=== PATIENT | male | born 1955 | race Caucasian/White ===

== ENCOUNTER → 2017-09-28 | Outpatient (CLI) | payer BC ==
--- NOTE | 2017-10-02 14:00 | PCVCIMAG ---
APPROVED REPORT Patient Location: Echo lab-STR[facility] Room #: 2 Stress Nurse: Kathy Silver RN INDICATION: Abnormal EKG, htn,dislipidemia The patient exercised according to the Jeromy Protocol for 10:15 minutes, achieving a maximum work level of 13.7 METS. The resting heart rate of 86 bpm, beau to a maximal level of 179 bpm. This value represents 100% of the maximal, age-predicted heart rate. The resting blood pressure of 140/90 mmHg, beau to a maximum blood pressure of 198/84 mmHg. The exercise was stopped due to fatigue. The stress ECG demonstrated rare PVC', no diagnostic ischemic electrocardiographic changes Conclusion 1. Maximal stress treadmill negative for ischemia. 2. No subjective signs of ischemia, no diagnostic ischemic electrocardiographic changes. 3. This study was associated with good exercise capacity (13.7 METS).
--- NOTE | 2017-10-02 14:00 | PCVCIMAG ---
APPROVED REPORT Study performed: 09/28/2017 13:39:52 EXAM: Comprehensive 2D, Doppler, and color-flow Echocardiogram Patient Location: Echo lab Room #: 2Status: routine BSA: 2.04 HR: 75 bpmBP: 140/90 mmHg Rhythm: NSR Risk Factors: Cardiac Risk Factors: HTN, Hyperlipidemia Indications Abnormal ECG Hypertension/HDD Abnormal EKGl at PC office 2D Dimensions LVEF(%): 63.49 (>50%) IVSd: 8.61 (7-11mm)LVOT Diam: 23.22 (18-24mm) LVDd: 50.06 mm PWd: 9.28 (7-11mm)Ascending Ao: 29.89 (22-36mm) LVDs: 32.74 (25-40mm) Left Atrium: 33.72 (27-40mm) Aortic Root: 27.38 mm LV Single Plane 4CH: 50.38 % LV Single Plane 2CH: 59.17 %Kwong's LVEF: 54.78 % Biplane EF: 54.2 % Volumes Left Atrial Volume (Systole) Single Plane 4CH: 59.56 mLSingle Plane 2CH: 68.20 mL Biplane LA Volume: 68.00 mLLA ESV Index: 33.00 mL/m2 Aortic Valve AoV Peak Ron.: 1.24 m/s AO Peak Gr.: 6.25 mmHgLVOT Max P.55 mmHg LVOT Max V: 0.78 m/s ARIELA Vmax: 2.68 cm2 Mitral Valve E/A Ratio: 1.1 MV Decel. Time: 133.89 ms MV E Max Ron.: 0.88 m/s MV A Ron.: 0.77 m/s IVRT: 72.66 ms TDI E/Lateral E': 7.33E/Medial E': 8.80 Medial E' Ron.: 0.10 m/s Lateral E' Ron.: 0.12 m/s Pulmonary Valve PV Peak Ron.: 0.82 m/sPV Peak Gr.: 2.68 mmHg Pulmonary Vein P Vein S: 0.64 m/sP Vein A: 0.35 m/s P Vein D: 0.44 m/sP Vein A Dur.: 90.0 msec P Vein S/D Ratio: 1.45 Tricuspid Valve TV Vmax: 0.64 m/s Left Ventricle The left ventricle is normal size. There is normal LV segmental wall motion. There is normal left ventricular wall thickness. Left ventricular systolic function is normal. The left ventricular ejection fraction is within the normal range. LVEF is 55%. The left ventricular diastolic function is normal. Right Ventricle The right ventricle is normal size. The right ventricular systolic function is normal. Atria The left atrium size is normal. The right atrium size is normal. Aortic Valve The aortic valve is normal in structure. No aortic regurgitation is present. There is no aortic valvular stenosis. Mitral Valve The mitral valve is normal in structure. Trace mitral valve regurgitation noted. No evidence of mitral valve stenosis. Tricuspid Valve The tricuspid valve is normal in structure. There is no tricuspid valve regurgitation noted. Pulmonic Valve The pulmonary valve is normal in structure. There is no pulmonic valvular regurgitation. Great Vessels The aortic root is normal in size. The ascending aorta is normal in size. IVC is normal in size and collapses with >50% inspiration Pericardium There is no pericardial effusion. There is no pleural effusion. <Conclusion> Left ventricular systolic function is normal. There is normal LV segmental wall motion. LVEF 55%. Diastolic function is normal. The aortic valve is normal in structure. No aortic regurgitation or stenosis The mitral valve is normal in structure. Trace mitral valve regurgitation noted. Pulmonary artery pressure could not be reliably ascertained There is no pericardial effusion.
== END | disposition home or self-care (01) ==
LOC: PCVCIMAG 13:32
PROVIDERS: ATTEND Internal Medicine
DX: I10 Essential (primary) hypertension (principal); R94.31 Abnormal electrocardiogram [ECG] [EKG]; E78.5 Hyperlipidemia, unspecified
CPT/HCPCS: 93017; 93306